=== PATIENT | female | born 1935 | race Caucasian/White ===

== ENCOUNTER → 2017-02-09 | Outpatient (CLI) | payer MEDICARE | END | disposition home or self-care (01) | LOC: ROC 12:04 | PROVIDERS: ATTEND Radiology Radiation Oncology | DX: C34.12 Malignant neoplasm of upper lobe, left bronchus or lung (principal) | CPT/HCPCS: G0463 ==

== ENCOUNTER → 2017-05-25 | Outpatient (CLI) | payer MEDICARE | END | disposition home or self-care (01) | LOC: ROC 08:10 | PROVIDERS: ATTEND Radiology Radiation Oncology | DX: C34.12 Malignant neoplasm of upper lobe, left bronchus or lung (principal); Z87.891 Personal history of nicotine dependence; Z92.3 Personal history of irradiation | CPT/HCPCS: G0463 ==

== ENCOUNTER → 2017-08-20 | Outpatient (CLI) | payer MEDICARE | LOC: ROC 09:56 | PROVIDERS: ATTEND Radiology Radiation Oncology | DX: Z02.9 Encounter for administrative examinations, unspecified (principal) ==